=== PATIENT | female | born 1965 | race Caucasian/White ===

== ENCOUNTER → 2016-09-17 | Outpatient (CLI) | payer OTHER ==
[~2016-09-17] MED LIST: ALLERGY10 MG PO; ATIVAN1 MG PO; B12,B-12,B 12500 MC1 PO; BENTYL10 MG PO; CARAFATE1 GM/10 ML PO; CYMBALTA30 MG PO; DAYPRO600 M1 PO; DIFLUCAN150 MG PO; HYDROCODONE BIT1 T11 PO; LISINOPRIL10 M1 PO; MEDROL DOSEPAK4 MG PO; MOTRIN800 MG PO; OYSCO 500500 M1 PO; POTASSIUM CHLO10 ME4 PO; PRILOSEC40 MG PO; ROBAXIN750 MG PO; SINGULAIR10 MG PO; VALTREX1 GM PO; VIBRAMYCIN100 MG PO; VICODIN 5/500 505 MG PO; VICODIN ES 7501 TA1 PO; ZANTAC 150150 MG PO; ZOFRAN4 MG PO
== END | disposition home or self-care (01) ==
LOC: CT 09:26
DX: R10.12 Left upper quadrant pain (principal); R05 Cough; Z90.49 Acquired absence of other specified parts of digestive tract; Z90.710 Acquired absence of both cervix and uterus

== ENCOUNTER → 2017-05-14 | Outpatient (CLI) | payer OTHER | END | disposition home or self-care (01) | LOC: MAMMO 02:04 | DX: Z12.31 Encounter for screening mammogram for malignant neoplasm of breast (principal) ==

== ENCOUNTER → 2018-04-22 | Outpatient (CLI) | payer OTHER | END | disposition home or self-care (01) | LOC: MAMMO 04-07 16:20 | DX: Z12.31 Encounter for screening mammogram for malignant neoplasm of breast (principal) ==

== ENCOUNTER → 2023-08-01 | Outpatient (CLI) | payer OTHER | END | disposition home or self-care (01) | LOC: MRI 01:27 | PROVIDERS: ATTEND Podiatrist | DX: M19.071 Primary osteoarthritis, right ankle and foot (principal); R60.9 Edema, unspecified; M79.671 Pain in right foot ==